=== PATIENT | male | born 1995 | race Caucasian/White ===

== ENCOUNTER 2019-04-01 08:37 | Emergency (ER) | payer OTHER ==
[~2019-04-01] VITALS: Ht 182.9 cm; Wt 111.1 kg
[2019-04-01] MEDS ORDERED: Norco 5-325 Ta1 EACH PO (09:12)
== END 2019-04-01 09:20 | disposition home or self-care (01) ==
LOC: ER 08:37
DX: K03.81 Cracked tooth (principal); K08.89 Other specified disorders of teeth and supporting structures
CPT/HCPCS: 99283; A9270-GY